=== PATIENT | female | born 1960 | race Caucasian/White ===

== ENCOUNTER 2018-01-20 08:44 | Day surgery (SDC) | payer BC ==
[2018-01-20 10:09] LABS: Performing Lab VERACYTE; Test Name FNA
[2018-02-03 08:24] LABS: Result SEE PATHOTH RESULT
== END 2018-01-20 22:39 | disposition home or self-care (01) ==
LOC: US 08:44
PROVIDERS: Internal Medicine Endocrinology, Diabetes & Metabolism
PROC: 0GBG3ZX Excision of Left Thyroid Gland Lobe, Percutaneous Approach, Diagnostic (ICD-10-PCS; principal; 2018-01-20)
DX: E04.2 Nontoxic multinodular goiter (principal)
CPT/HCPCS: 10022; 76942

== ENCOUNTER → 2019-02-05 | Outpatient (CLI) | payer OTHER, BC ==
[~2019-02-05] MED LIST: AZELASTINE137 MCG/0.; ESTRADIOL42.5 GM; INSULANPEN; Novolog100 UNIT/2
[2019-02-07 08:15] LABS: HBSAG SCREEN Negative (Negative); HCV ANTIBODY <0.1 (0.0-0.9); HIV SCREEN 4TH GENERATION WRFX Non Reactive (Non Reactive)
== END | disposition home or self-care (01) ==
LOC: LAB EV 15:14 → LAB SHORT 15:14
PROVIDERS: General Practice
DX: Z20.9 Contact with and (suspected) exposure to unspecified communicable disease (principal)
CPT/HCPCS: 84460; 86317; 86803; 87340; 87389

== ENCOUNTER 2020-11-12 08:30 | Day surgery (SDC) | payer BC ==
[~2020-11-12] VITALS: Ht 167.6 cm; Wt 72.3 kg
== END 2020-11-12 10:55 | disposition home or self-care (01) ==
LOC: ORSCSDS 08:30
PROVIDERS: Internal Medicine Gastroenterology
PROC: 0DBN8ZX Excision of Sigmoid Colon, Via Natural or Artificial Opening Endoscopic, Diagnostic (ICD-10-PCS; principal; 2020-11-12 09:45)
PROC: 0DBH8ZX Excision of Cecum, Via Natural or Artificial Opening Endoscopic, Diagnostic (ICD-10-PCS; principal; 2020-11-12 09:45)
DX: Z12.11 Encounter for screening for malignant neoplasm of colon (principal); Z86.010 Personal history of colon polyps; D12.0 Benign neoplasm of cecum; K63.5 Polyp of colon; K64.8 Other hemorrhoids; K57.30 Diverticulosis of large intestine without perforation or abscess without bleeding
CPT/HCPCS: 82947; 88305; J2704; J7120